=== PATIENT | male | born 1960 | race Caucasian/White ===

== ENCOUNTER 2017-01-23 07:35 | Day surgery (SDC) | payer OTHER ==
[2017-01-23] VITALS (8 sets, daily range): BP systolic 119–149; BP diastolic 73–78; PULSE 76–88; RESP 12–21; Ht 182.9 cm; Wt 99.7 kg
[~2017-01-23] VITALS: Ht 182.9 cm; Wt 99.7 kg
--- NOTE | 2017-01-23 07:30 | HPN ---
Date/Time of Note Date/Time of Note DATE: 01/23/17 TIME: 07:29 Interval H&P Admission Note Pt. seen H&P reviewed: No system changes ZAC STEVENS MD Jan 23, 2017 07:29
[2017-01-23] MEDS ORDERED: AMO500 PO (08:17)
[2017-01-23] MEDS ORDERED: LACTATED RINGER'S 1,000 ML IV SCH (09:30)
[2017-01-23] MEDS ORDERED: FENTAnyl 50 MCG/ML VIAL ONE ×2 (10:57→11:25)
[2017-01-23] MEDS ORDERED: MIDAZOLAM 1 MG/ML 2 ML INJ ONE (10:57)
[2017-01-23] MEDS ORDERED: BUPIVACAINE 0.25% (MPF) 30 ML INJ ONE (11:07)
[2017-01-23] MEDS ORDERED: PROPOFOL 20 ML ONE (11:12)
[2017-01-23] MEDS ORDERED: ROCURONIUM 50 MG INJ ONE (11:12)
[2017-01-23] MEDS ORDERED: CEFAZOLIN 1 GM INJ ONE (11:12)
[2017-01-23] MEDS ORDERED: LIDOCAINE 2% (SDV) 5 ML INJ ONE (11:12)
[2017-01-23] MEDS ORDERED: METOCLOPRAMIDE 10 MG INJ ONE (11:14)
[2017-01-23] MEDS ORDERED: ONDANSETRON 4 MG INJ ONE (11:14)
[2017-01-23] MEDS ORDERED: FAMOTIDINE 20 MG INJ ONE (11:14)
[2017-01-23] MEDS ORDERED: SUGAMMADEX SODIUM 200 MG/2 ML VIAL IV ONE (11:54)
[2017-01-23] MEDS ORDERED: morphine 2 MG INJ IV PRN (12:00)
[2017-01-23] MEDS ORDERED: OXYCODONE/ACETAMINOPHEN (5/325) TAB PO PRN ×2 (12:00)
[2017-01-23] MEDS ORDERED: ONDANSETRON 4 MG INJ IV PRN (12:00)
--- NOTE | 2017-01-23 12:01 | OPR ---
Date/Time of Note Date/Time of Note DATE: 01/23/17 TIME: 11:58 Operative Report Procedure Date: Jan 23, 2017 Preoperative Diagnosis Ventral and umbilical hernia without obstruction Postoperative Diagnosis Ventral and umbilical hernia without obstruction Operation Performed Repair with mesh Surgeon: ZAC STEVENS MD Anesthesia: general Anesthesiologist: TAYO MOORE DO Estimated Blood Loss: 0 - 10 ml's Specimens None Grafts/Implants Medium proceed patch Tubes/Drains None Complications: None Pt Condition Post Procedure: stable Disposition: PACU Indications Symptoms Operative\Procedure Findings After satisfactory general anesthesia was achieved the abdomen was prepped and draped in the usual fashion. A left circumumbilical incision was made and carried upwards for 5 cm in the midline. The skin and subcutaneous tissues were dissected from both sacs. There was a 1 cm fascial defect between both hernias this was opened with electrocautery and the sacs were excised and discarded. A medium proceed patch was placed as an underlay and it was secured to healthy fascia with 3 running sutures of 0 Novafil. The repair was reinforced by attaching the mesh straps to fascia with 2-0 Vicryl. The wound was infiltrated with 20 cc of 0.25% plain Marcaine. Subcu was closed with interrupted 3-0 Vicryl and skin closed with lang. Sponge and needle counts were reported as correct 2. ZAC STEVENS MD Jan 23, 2017 12:01
[2017-01-23] MEDS ORDERED: FENTAnyl 50 MCG/ML VIAL IV PRN (13:00)
[2017-01-23] MEDS ORDERED: DIPHENHYDRAMINE 50 MG INJ IV PRN (13:00)
[2017-01-23] MEDS ORDERED: HYDROmorphONE (0.2 MG/ML) 10ML SYG IV PRN ×2 (13:00)
[2017-01-23] MEDS ORDERED: MEPERIDINE 25 MG INJ IV PRN (13:00)
== END 2017-01-23 14:20 | disposition home or self-care (01) ==
LOC: SDS 07:35
PROVIDERS: ATTEND Surgery
DX: K42.9 Umbilical hernia without obstruction or gangrene (principal); E11.9 Type 2 diabetes mellitus without complications; E66.3 Overweight; Z68.29 Body mass index [BMI] 29.0-29.9, adult
CPT/HCPCS: 49585; 82962; C1781; J0690; J2250; J2405; J2765; J3010; Z7512; Z7610